=== PATIENT | male | born 1995 | race African-American/Black ===

== ENCOUNTER 2016-12-16 10:43 | Outpatient (CLI) | payer OTHER ==
[~2016-12-16] VITALS: Ht 170.2 cm; Wt 72.7 kg
[2016-12-16] MEDS ORDERED: VITAMIN D 50,1.25 MG PO (12:02)
[2016-12-16] MEDS ORDERED: RT ADVAIR HFA 2312 G IH (12:02)
[2016-12-16] MEDS ORDERED: VITAMIN D1000 IU PO (12:03)
[2016-12-16] MEDS ORDERED: EPIPEN 2-PAK1 MG/ML IM (12:03)
[2016-12-16] MEDS ORDERED: PROAIR HFA0.09 MG/AC IH (12:04)
[2016-12-16 12:17] VITALS: BP 107/61; PULSE 78; TEMP 98.3
== END 2016-12-16 18:37 | disposition home or self-care (01) ==
LOC: EUO 10:43
DX: J45.40 Moderate persistent asthma, uncomplicated (principal); Z79.899 Other long term (current) drug therapy
CPT/HCPCS: J2357

== ENCOUNTER 2017-01-27 14:43 | Outpatient (CLI) | payer OTHER ==
[~2017-01-27] VITALS: Ht 170.2 cm; Wt 75.0 kg
[~2017-01-27 14:43] MED LIST: EPIPEN 2-PAK1 MG/ML IM; PROAIR HFA0.09 MG/AC IH; RT ADVAIR HFA 2312 G IH; VITAMIN D 50,1.25 MG PO; VITAMIN D1000 IU PO
[2017-01-27 14:57] VITALS: BP 106/57; PULSE 69; TEMP 98.2
== END 2017-01-27 16:21 | disposition home or self-care (01) ==
LOC: EUO 14:43
DX: J45.40 Moderate persistent asthma, uncomplicated (principal)
CPT/HCPCS: J2357

== ENCOUNTER 2017-02-27 15:48 | Outpatient (CLI) | payer OTHER ==
[~2017-02-27] VITALS: Ht 170.2 cm; Wt 72.7 kg
[2017-02-27 16:34] VITALS: BP 115/65; PULSE 71; TEMP 98.3
== END 2017-02-27 16:40 | disposition home or self-care (01) ==
LOC: EUO 15:48
DX: J45.40 Moderate persistent asthma, uncomplicated (principal)

== ENCOUNTER → 2017-04-11 | Outpatient (CLI) | payer OTHER ==
[~2017-04-11] VITALS: Ht 170.2 cm; Wt 75.0 kg
[2017-04-11 15:47] VITALS: BP 100/61; PULSE 81; TEMP 98.1
== END ==
LOC: EUO 03-27 14:00
DX: J45.40 Moderate persistent asthma, uncomplicated (principal)
CPT/HCPCS: J2357

== ENCOUNTER 2017-05-14 15:29 | Outpatient (CLI) | payer OTHER ==
[~2017-05-14] VITALS: Ht 170.2 cm; Wt 78.6 kg
[~2017-05-14 15:29] MED LIST changes: -VITAMIN D1000 IU PO; +VITAMIN D31000 I1 PO
[2017-05-14 16:54] VITALS: BP 111/68; PULSE 67; TEMP 97.9
== END 2017-05-14 16:55 | disposition home or self-care (01) ==
LOC: EUO 15:29
DX: J45.40 Moderate persistent asthma, uncomplicated (principal)
CPT/HCPCS: J2357

== ENCOUNTER 2017-06-12 14:42 | Outpatient (CLI) | payer OTHER ==
[~2017-06-12] VITALS: Ht 172.7 cm; Wt 77.7 kg
[2017-06-12] MEDS ORDERED: ADVIL200 MG PO (15:05)
[2017-06-12 15:07] VITALS: BP 122/66; PULSE 69; TEMP 98.2
== END 2017-06-12 16:08 | disposition home or self-care (01) ==
LOC: EUO 14:42
DX: J45.40 Moderate persistent asthma, uncomplicated (principal)
CPT/HCPCS: J2357

== ENCOUNTER 2017-07-02 16:00 | Outpatient (CLI) | payer OTHER ==
[~2017-07-02] VITALS: Ht 172.7 cm; Wt 79.6 kg
[~2017-07-02 16:00] MED LIST changes: +ADVIL200 MG PO
[2017-07-02 16:13] VITALS: BP 128/68; PULSE 90; TEMP 98.2
== END 2017-07-02 16:50 | disposition home or self-care (01) ==
LOC: EUO 16:00
DX: J45.40 Moderate persistent asthma, uncomplicated (principal)
CPT/HCPCS: J2357

== ENCOUNTER 2017-08-01 15:23 | Outpatient (CLI) | payer OTHER ==
[~2017-08-01] VITALS: Ht 172.7 cm; Wt 77.0 kg
[2017-08-01 15:44] VITALS: BP 121/68; PULSE 66; TEMP 97.9
== END 2017-08-01 17:05 | disposition home or self-care (01) ==
LOC: EUO 15:23
DX: J45.40 Moderate persistent asthma, uncomplicated (principal)
CPT/HCPCS: J2357